=== PATIENT | female | born 2000 | race Caucasian/White ===

== ENCOUNTER 2020-05-12 15:29 | Outpatient (REF) | payer OTHER, SELFPAY | END 2020-05-12 15:30 | disposition home or self-care (01) | LOC: HO.LAB 15:29 | PROVIDERS: Visit Provider Internal Medicine | DX: Z20.822 Contact with and (suspected) exposure to COVID-19 (principal) | CPT/HCPCS: 36415; C9803; U0003 ==

== ENCOUNTER 2020-07-08 14:43 | Outpatient (REF) | payer OTHER, SELFPAY | END 2020-07-08 14:44 | disposition home or self-care (01) | LOC: HO.LAB 14:43 | PROVIDERS: Visit Provider Internal Medicine | DX: Z20.822 Contact with and (suspected) exposure to COVID-19 (principal) | CPT/HCPCS: 36415; C9803; U0003; U0005 ==

== ENCOUNTER 2020-09-10 11:52 | Outpatient (REF) | payer OTHER, SELFPAY ==
[2020-09-10 12:42] LABS: COVID-19 Test Negative (Negative)
== END 2020-09-10 11:53 | disposition home or self-care (01) ==
LOC: HO.LAB 11:52
PROVIDERS: Visit Provider Internal Medicine
DX: Z20.822 Contact with and (suspected) exposure to COVID-19 (principal)
CPT/HCPCS: 36415; 87635; C9803

== ENCOUNTER 2020-10-14 13:38 | Emergency (ER) | payer OTHER, SELFPAY ==
[2020-10-14 13:56] VITALS: BP 134/88; PULSE 103; RESP 18; TEMP 36.9; O2SAT 96; BMI 36.3
--- NOTE | 2020-10-14 14:19 | PC.NURSE ---
LEFT TONSIL ENLARGED WITH WHITE PUS NOTED.
[2020-10-14] MEDS: dexAMETHasone 2 MG TABLET 10 MG PO (14:50)
[2020-10-14] MEDS: Amoxicillin/Potassium Clav 875 MG TABLET PO (14:50)
[2020-10-14] MEDS: Ibuprofen 600 MG TABLET PO (14:50)
--- NOTE | 2020-10-14 15:04 | ED.GENADULT ---
HPI - General Adult General Chief complaint: General Medical Stated complaint: SORE THROAT Time Seen by Provider: 10/14/20 14:06 Source: patient Mode of arrival: ambulatory History of Present Illness HPI narrative: 20-year-old female with no significant past medical history presenting to the ED complaining of sore throat and difficulty/pain with swallowing times a couple days. Admits was seen at [facility] yesterday, rapid strep was negative, Augmentin was sent to pharmacy however patient was unable to potato picker, however reports it is ready now. Admits white exudates that are present today were not there yesterday. Also reports left ear pain and dry cough. Denies fever, chills, inability to swallow, recent travel, sick contacts, exposure COVID-19 Related Data Previous Rx's Medication Instructions Recorded amoxicillin-pot clavulanate 1 tab PO Q12H 7 Days #14 tab 10/14/20 [Augmentin] Allergies Allergy/AdvReac Type Severity Reaction Status Date / Time No Known Allergies Allergy Unverified 01/24/20 19:29 [No Known Allergies*] Review of Systems Review of Systems: Constitutional: No Fever, No Chills ENT/Mouth: + Ear Pain, No Nasal Congestion, No Sinus Pain, No Hoarseness, + sore throat, No Rhinorrhea, + Swallowing Difficulty Cardiovascular: No Chest Pain, No SOB Respiratory: + Cough, No Sputum, No Wheezing Gastrointestinal: No Nausea, No Vomiting, No Abdominal pain Musculoskeletal: No joint pain, No Myalgias, No Joint Swelling Skin: No Skin Lesions, No rash Neuro: No Weakness, No Numbness, No Paresthesias Yes all other systems are reviewed and are negative [facility] Past Medical History Attestation statement: The following information was validated with the patient. Social History Social History Advance Directives: Yes Advance Directives Information Provided: No Advance Directives on File: No Physical Exam Vital Signs: Vital Signs: Last Vital Signs Temp 98.4 F 10/14/20 13:56 Pulse 103 H 10/14/20 13:56 Resp 18 10/14/20 13:56 BP 134/88 10/14/20 13:56 Pulse Ox 96 10/14/20 13:56 Body Mass Index 36.3 Const: General: cooperative and healthy appearing Orientation/consciousness: patient oriented x3 Limitations: no limitations HENMT: Other: Patient is talking in complete sentences, in no respiratory distress Head: Yes normal to inspection Ears: hearing grossly normal bilaterally, external ears normal and TM's normal bilaterally General nose exam: Normal external nose present Face and sinus: Yes normal facial exam Throat: Yes uvula midline, Yes abnormal tonsil (Bilateral tonsillar swelling/erythema and exudates), No peritonsillar mass, No uvula laterally displaced and No uvular edema Eyes: General: appearance normal, both eyes and all related structures EOM: EOMs intact bilaterally Neck: Neck: Yes normal visual inspection, Yes no meningeal signs and Yes lymphadenopathy (Submandibular) Resp: Effort & Inspection: normal respiratory effort, not labored and no stridor Auscultation: clear to auscultation bilaterally Cardio: Rate: regular rate Heart sounds: S1 normal heart sound present and S2 normal heart sound present GI: Inspection: Yes normal to inspection Skin: Rashes: no rashes Wounds: no wounds Neuro: General: patient oriented x3 and no meningeal signs Gait exam (Neuro): Normal gait present Extrem: General: Yes normal to inspection Medical Decision Making MDM Narrative Medical decision making narrative: 20-year-old female with no significant past medical history presenting to the ED complaining of sore throat and difficulty/pain with swallowing times a couple days. On exam mildly tachycardic, NAD, in no apparent distress, talking in complete sentences, bilateral tonsillar swelling/erythema with exudates, is handling secretions. Physical exam consistent with strep pharyngitis. Will also COVID swab Lab Data Labs: Lab Results 10/14/20 10/14/20 Range/Units 14:41 14:41 COVID-19 ([facility]) Negative (Negative) COVID-19 Clin Com See Note S. pyogenes GrpA YOUNG Negative (Negative) Discharge Plan Discharge Clinical Impression: Strep pharyngitis Patient Disposition: Home, Self-Care Instructions: Strep Throat (ED) Additional Instructions: You have strep throat, Augmentin is an antibiotic, take as prescribed, make sure you pick it up today your given the 1st dose today in the emergency department Your also given a dose of a steroid today this will help with the swelling Take Tylenol and Motrin at home which will help with discomfort/swelling Make sure your staying hydrated Your contagious until your on the antibiotics for 24 hours Your tested for COVID-19, the results should be back in a few hours, I will call you positive or negative, in the meantime self isolate until you know the results Prescriptions: New amoxicillin-pot clavulanate [Augmentin] 875-125 mg tablet 1 tab PO Q12H 7 Days Qty: 14 RF: 0 Referrals: Physician,Unknown [Primary Care Provider] - 2 days Stand Alone Forms: Work/School Release Interventions: ED Discharge Assessment Last Done: 10/14/20 15:19 Discharge Date/Time: 10/14/20 15:19
[2020-10-14 15:14] LABS: Strep A Nucleic Acid Negative (Negative)
[2020-10-14 15:30] LABS: COVID-19 Test Negative (Negative)
== END 2020-10-14 15:19 | disposition home or self-care (01) ==
PROVIDERS: Physician Assistant; Emergency Provider Emergency Medicine
DX: J02.0 Streptococcal pharyngitis (principal); Z20.822 Contact with and (suspected) exposure to COVID-19; H92.02 Otalgia, left ear
CPT/HCPCS: 36415; 87635; 87651; 99283; J8540

== ENCOUNTER 2021-08-25 22:43 | Emergency (ER) | payer OTHER, SELFPAY ==
--- NOTE | ~2021-08-25 | XR_ITS ---
EXAMINATION: XR ABDOMEN KUB CLINICAL INDICATION: Lower abdominal discomfort. History of constipation. COMPARISON: None TECHNIQUE: AP view of the abdomen. FINDINGS: Nonobstructive bowel gas pattern. No dilated loops of bowel. Gas throughout nondilated colon with mild stool burden. The lung bases are clear. No suspicious calcifications. No acute osseous abnormality. XR/XR KUB IMPRESSION: Normal bowel gas pattern. Mild stool burden.
[2021-08-25 22:55] VITALS: BP 109/70; PULSE 76; RESP 18; TEMP 36.6; O2SAT 100; BMI 32.4
[2021-08-25 23:14] LABS: MANUAL DIFF FLAG NO
[2021-08-25 23:15] LABS: Basophils Absolute Auto 0.1 X10*3/uL (0.0-0.2); Basophils Percent Auto 0.4 % (0-2); Eosinophils Absolute Auto 0.2 X10*3/uL (0.0-0.4); Eosinophils Percent Auto 1.6 % (0-4); Hematocrit 34.8 % (37.0-47.0); Hemoglobin 11.5 g/dl (12.0-16.0); Imm Gran Abs Auto 0.03 X10*3/uL (0.00-0.03); Imm Gran Pct Auto 0.2 % (0.0-0.4); Lymphocytes Absolute Auto 3.3 X10*3/uL (1.2-4.9); Lymphocytes Percent Auto 25.3 % (20-40); Mean Corpuscular Hemoglobin 29.6 pg (27.0-33.0); Mean Corpuscular Volume 89.5 fL (80.0-98.0); Mean Platelet Volume 8.9 fL (9.4-12.3); Monocytes Percent Auto 7.6 % (2-11); Neutrophils Absolute Auto 8.3 x10*3/uL (2.0-8.3); Neutrophils Percent Auto 64.9 % (45-73); Platelet Count 361 X10*3/uL (160-400); Red Blood Count 3.89 X10*6/uL (4.20-5.50); Red Cell Distribution Width 12.3 % (11.0-16.0); White Blood Count 12.8 X10*3/uL (4.8-10.8)
[2021-08-25 23:18] LABS: Appearance Urine CLEAR; Color Urine YELLOW; Glucose Urine UA NEG (NEG); Leukocyte Esterase Urine NEG (NEG); Nitrite Urine NEG (NEG); PH 7.5 (5.0-8.0); Urine Blood NEG (NEG); Urine Ketones NEG (NEG); Urine Protein NEG (NEG-TRACE)
[2021-08-25 23:20] LABS: UPreg QC Valid YES; Urine Pregnancy NEGATIVE (NEGATIVE)
[2021-08-25 23:31] LABS: COVID-19 Test Negative (Negative)
[2021-08-25 23:36] LABS: IDNOW Serial# 08D9AD1C; Influenza A Negative (Negative); Influenza B2 Negative (Negative)
[2021-08-25 23:37] LABS: Alanine Aminotransferase 16 U/L (0-31); Albumin Level 3.8 g/dL (3.5-5.0); Alkaline Phosphatase 69 U/L (39-117); Anion Gap 9 (12-20); Aspartate Amino Transferase 17 U/L (5-31); Bilirubin Total 0.7 mg/dL (0.0-1.0); Blood Urea Nitrogen 9 mg/dL (9-16); Calcium 9.2 mg/dL (8.4-10.2); Carbon Dioxide 27 mmol/L (22-29); Chloride 106 mmol/L (96-108); Creatinine Clr Calc Pharmacy 132.8; Estimated Glomerular Filt Rate > 60; Glucose Random 101 mg/dL (60-115); Potassium 4.2 mmol/L (3.3-5.1); Sodium 138 mmol/L (135-145); Total Protein 7.1 g/dL (6.5-8.0)
[2021-08-25 23:49] VITALS: BP 125/91; PULSE 82; RESP 16; TEMP 37.1; O2SAT 100
--- NOTE | 2021-08-26 00:43 | ED_ITS ---
HPI - General Adult General Chief complaint: General Medical Stated complaint: abd pain, lower back pain Time Seen by Provider: 08/25/21 23:48 Source: patient Mode of arrival: ambulatory History of Present Illness HPI narrative: 21-year-old female presents with headache, mild nausea, diarrhea lower abdominal/pelvic pain that is been ongoing since Tuesday. Patient denies any fevers or chills, denies urinary pain/burning/frequency but states that the sensation within her lower abdomen feels similar to a urinary tract infection. She denies any vaginal discharge. Related Data Previous Rx's Medication Instructions Recorded amoxicillin 500 mg capsule 500 mg PO Q12H #20 cap 05/14/21 Allergies Allergy/AdvReac Type Severity Reaction Status Date / Time No Known Allergies Allergy Verified 05/14/21 12:40 [No Known Allergies*] Review of Systems Review of Systems: Pertinent positives and negatives as stated in HPI 10 point review of systems is otherwise negative. PMFSH Past Medical History Source: nursing notes reviewed Social History Social History Advance Directives: No Physical Exam ED Vital Signs: Vital Signs - 24 hr 08/25/21 22:55 08/25/21 23:49 Temperature 98 F 98.7 F Pulse Rate 76 82 Respiratory Rate 18 16 Blood Pressure 109/70 125/91 H Pulse Oximetry 100 100 BMI result Body Mass Index 32.4 VITAL SIGNS: Reviewed. GENERAL: Well developed, well nourished, in no acute distress. HEAD: Normocephalic/atraumatic EYES: PERRLA, EOMI EARS: Ext canals without abnormality, TMs non-bulging and non-erythematous NOSE: Nares patent bilateral OROPHARYNX: no oral lesions noted, posterior pharynx clear and non-erythematous without noted tonsillar enlargement/erythema/exudates NECK: Supple, no adenopathy LUNGS: Normal breath sounds. No adventitious sounds or accessory muscle use. SpO2<100> CARDIOVASCULAR: Regular rate and rhythm without noted murmurs ABDOMEN: Soft, non-tender, non-distended with bowel sounds. MUSCULOSKELETAL: No tenderness, deformities, or effusions noted on gross inspection. EXTREMITIES: No cyanosis, clubbing or edema. SKIN: Inspection of the skin reveals no rashes NEUROLOGIC: Alert and oriented x 4. Strength and sensation to light touch were grossly intact x 4. Course Course Course Narrative: -year-old female with history and clinical presentation after review of investigations which do not show acute findings other than a mild leukocytosis with a benign abdominal exam and urinalysis negative for evidence of infection. Patient then endorse that she suffers from chronic constipation and has had significant difficulty over the past couple of days. On review of all investigations there is [id number] stool load and on re- evaluation after patient received combination analgesics she reports resolution of her symptoms. Discussed with patient the possibility of the constipation in conjunction with pre-menstruation symptoms. At this time patient is stable for discharge to home. Medical Decision Making Lab Data Result diagrams: 08/25/21 22:59 08/25/21 22:59 Labs: Lab Results 08/25/21 08/25/21 08/25/21 Range/Units 22:59 22:59 22:59 WBC 12.8 H (4.8-10.8) X10*3/uL RBC 3.89 L (4.20-5.50) X10*6/uL Hgb 11.5 L (12.0-16.0) g/dl Hct 34.8 L (37.0-47.0) % MCV 89.5 (80.0-98.0) fL MCH 29.6 (27.0-33.0) pg MCHC 33.0 (31.0-35.0) g/dl RDW 12.3 (11.0-16.0) % Plt Count 361 (160-400) X10*3/uL MPV 8.9 L (9.4-12.3) fL Immature Gran % (Auto) 0.2 (0.0-0.4) % Neut % (Auto) 64.9 (45-73) % Lymph % (Auto) 25.3 (20-40) % Rock % (Auto) 7.6 (2-11) % Eos % (Auto) 1.6 (0-4) % Baso % (Auto) 0.4 (0-2) % Lymph # (Auto) 3.3 (1.2-4.9) X10*3/uL Rock # (Auto) 1.0 (0.1-1.2) X10*3/uL Eos # (Auto) 0.2 (0.0-0.4) X10*3/uL Baso # (Auto) 0.1 (0.0-0.2) X10*3/uL Abs Immat Gran (auto) 0.03 (0.00-0.03) X10*3/uL Absolute Neuts (auto) 8.3 (2.0-8.3) x10*3/uL Absolute Nucleated RBC 0.000 (0.0-0.012) X10*3/uL Nucleated RBC % (auto) 0.0 (0.0-0.2) /100WBC Sodium 138 (135-145) mmol/L Potassium 4.2 (3.3-5.1) mmol/L Chloride 106 (96-108) mmol/L Carbon Dioxide 27 (22-29) mmol/L Anion Gap 9 L (12-20) BUN 9 (9-16) mg/dL Creatinine 0.73 (0.5-1.4) mg/dL Estim Creat Clear Calc 132.8 Estimated GFR > 60 Random Glucose 101 (60-115) mg/dL Calcium 9.2 (8.4-10.2) mg/dL Total Bilirubin 0.7 (0.0-1.0) mg/dL AST 17 (5-31) U/L ALT 16 (0-31) U/L Alkaline Phosphatase 69 (39-117) U/L Total Protein 7.1 (6.5-8.0) g/dL Albumin 3.8 (3.5-5.0) g/dL Urine Color Urine Appearance Urine pH (5.0-8.0) Ur Specific [employer] (1.005-1.025) Urine Protein (NEG-TRACE) MG/DL Urine Glucose (UA) (NEG) MG/DL Urine Ketones (NEG) MG/DL Urine Blood (NEG) Urine Nitrite (NEG) Ur Leukocyte Esterase (NEG) Urine Test (NEGATIVE) COVID-19 ([facility]) Negative (Negative) COVID-19 Clin Com See Note Influenza Type A ([facility]) (Negative) Influenza Type B (YOUNG) (Negative) Influenza A & B Note 08/25/21 08/25/21 08/25/21 Range/Units 22:59 23:04 23:04 WBC (4.8-10.8) X10*3/uL RBC (4.20-5.50) X10*6/uL Hgb (12.0-16.0) g/dl Hct (37.0-47.0) % MCV (80.0-98.0) fL MCH (27.0-33.0) pg MCHC (31.0-35.0) g/dl RDW (11.0-16.0) % Plt Count (160-400) X10*3/uL MPV (9.4-12.3) fL Immature Gran % (Auto) (0.0-0.4) % Neut % (Auto) (45-73) % Lymph % (Auto) (20-40) % Rock % (Auto) (2-11) % Eos % (Auto) (0-4) % Baso % (Auto) (0-2) % Lymph # (Auto) (1.2-4.9) X10*3/uL Rock # (Auto) (0.1-1.2) X10*3/uL Eos # (Auto) (0.0-0.4) X10*3/uL Baso # (Auto) (0.0-0.2) X10*3/uL Abs Immat Gran (auto) (0.00-0.03) X10*3/uL Absolute Neuts (auto) (2.0-8.3) x10*3/uL Absolute Nucleated RBC (0.0-0.012) X10*3/uL Nucleated RBC % (auto) (0.0-0.2) /100WBC Sodium (135-145) mmol/L Potassium (3.3-5.1) mmol/L Chloride (96-108) mmol/L Carbon Dioxide (22-29) mmol/L Anion Gap (12-20) BUN (9-16) mg/dL Creatinine (0.5-1.4) mg/dL Estim Creat Clear Calc Estimated GFR Random Glucose (60-115) mg/dL Calcium (8.4-10.2) mg/dL Total Bilirubin (0.0-1.0) mg/dL AST (5-31) U/L ALT (0-31) U/L Alkaline Phosphatase (39-117) U/L Total Protein (6.5-8.0) g/dL Albumin (3.5-5.0) g/dL Urine Color YELLOW Urine Appearance CLEAR Urine pH 7.5 (5.0-8.0) Ur Specific [employer] 1.020 (1.005-1.025) Urine Protein NEG (NEG-TRACE) MG/DL Urine Glucose (UA) NEG (NEG) MG/DL Urine Ketones NEG (NEG) MG/DL Urine Blood NEG (NEG) Urine Nitrite NEG (NEG) Ur Leukocyte Esterase NEG (NEG) Urine Test NEGATIVE (NEGATIVE) COVID-19 ([facility]) (Negative) COVID-19 Clin Com Influenza Type A ([facility]) Negative (Negative) Influenza Type B (YOUNG) Negative (Negative) Influenza A & B Note See Note Discharge Plan Discharge Clinical Impression: Bilateral lower abdominal discomfort, Headache Patient Disposition: Home, Self-Care Instructions: Abdominal Pain (ED) Additional Instructions: 1. Tylenol 1000 mg, orally, every 6 hours as needed for pain control. Do not exceed 4000 mg within 24 hours. 2. Ibuprofen 400 mg, orally with milk or food, every 6 hours as needed for pain control. Recommend MiraLax twice a day in an attempt to achieve daily, soft stools. Stop this if you develop diarrhea. 3. Follow-up with your primary care provider in the next 2-3 days for re- evaluation further outpatient management as indicated. Return to the ER for worsening symptoms. Prescriptions: No Action amoxicillin 500 mg capsule 500 mg PO Q12H Qty: 20 0RF
[2021-08-26] MEDS: Acetaminophen 325 MG TABLET 975 MG PO (00:57)
[2021-08-26] MEDS: Ibuprofen 400 MG TABLET PO (00:57)
== END 2021-08-26 01:26 | disposition home or self-care (01) ==
PROVIDERS: Emergency Provider Student in an Organized Health Care Education/Training Program
DX: R10.30 Lower abdominal pain, unspecified (principal); R51.9 Headache, unspecified; Z20.822 Contact with and (suspected) exposure to COVID-19
CPT/HCPCS: 36415; 74018; 80053; 81003; 81025; 85025; 87502; 87635; 99283; 99284

== ENCOUNTER 2024-10-25 21:03 | Emergency (ER) | payer OTHER, SELFPAY ==
--- NOTE | ~2024-10-25 | XR_ITS ---
CLINICAL HISTORY: cp 1 view chest x-ray Comparison: None provided Findings: The lungs are clear. Heart size is normal. No acute fracture. IMPRESSION: 1. No acute findings. This document has been electronically signed by: Jonathan Kincaid MD on 10/25/2024 22:41:32
--- NOTE | 2024-10-25 21:07 | ECG_ITS ---
Test Reason : chest pain Blood Pressure : */* mmHG Vent. Rate : 111 BPM Atrial Rate : 111 BPM P-R Int : 116 ms QRS Dur : 72 ms QT Int : 344 ms P-R-T Axes : * 119 86 degrees QTcB Int : 467 ms Sinus tachycardia Right axis deviation Abnormal ECG No previous ECGs available Referred By: Generic ED Physician Electronically Signed By: Jef Macias
[2024-10-25 21:15] VITALS: BP 125/83; PULSE 109; RESP 16; TEMP 36.4; O2SAT 99; BMI 40.5
[2024-10-25 21:22] VITALS: BP 116/71; PULSE 104; RESP 20; TEMP 37.7; O2SAT 95
[2024-10-25 21:40] LABS: MANUAL DIFF FLAG NO
--- NOTE | 2024-10-25 21:44 | ED_ITS ---
HPI - Chest Pain General Chief Complaint: Chest Pain Stated Complaint: cp Time Seen by Provider: 10/25/24 21:37 Source: patient Mode of arrival: ambulatory Limitations: no limitations History of Present Illness ED Provider: HPI narrative: Patient's history of anxiety no known coronary artery disease complaining of chest pain for last 4 days patient is 24 years old nonsmoker no significant family history of cardiac disease does have history of anxiety and does have chest pain off and on when she gets anxious pain is constant no radiation of the pain no shortness a breath Related Data Previous Rx's ?Medication ?Instructions ?Recorded amoxicillin 500 mg capsule 500 mg PO Q12H #20 caps 10/28 Allergies Allergy/AdvReac Type Severity Reaction Status Date / Time No Known Allergies (No Known Allergy Verified 10/25/24 21:18 Allergies*) Review of Systems 2 Review of Systems: Yes all other systems are reviewed and are negative [facility] Social History Social History Advance Directives: No Advance Directives Information Provided: No Physical Exam 2 Vital Signs: Vital Signs: Last Vital Signs Temp 98.4 F 10/25/24 23:01 Pulse 80 10/25/24 23:01 Resp 15 10/25/24 23:01 BP 103/60 10/25/24 23:01 Pulse Ox 96 10/25/24 23:01 O2 Del Method Room Air 10/25/24 23:01 BMI result Body Mass Index 40.5 Appearance: Alert. Oriented X3. No acute distress. Eyes: PERRLA, No Nystagmus ENT: Pharynx normal. Oral Mucosa moist Neck: Normal inspection. Neck supple. CVS: Normal heart rate and rhythm. Pulses normal. No chest wall tenderness Respiratory: No respiratory distress. Equal air entry bilateral, no wheezing/rales/rhonchi Abdomen: Soft and nontender. Bowel sounds are present, no mass palpable, no CVA tenderness Skin: Skin warm and dry. Normal skin color. Normal skin turgor. Extremities: No lower extremity edema. No calf tenderness Neuro: Oriented X 3. No motor deficit. No sensory deficit.No cerebellar signs , cranial nerves II-XII intact Medical Decision Making Medical Decision Making [facility] Narrative: Patient has atypical chest pain heart score of 0 normal cardiac rhythm normal EKG will discharge patient home likely musculoskeletal Lab Data [facility] Lab Attestation statement: I reviewed the patient's lab results. 10/25/24 21:36 10/25/24 21:36 Labs: Lab Results 10/25/24 Range/Units 21:36 WBC 10.6 (4.8-10.8) X10*3/uL RBC 4.22 (4.20-5.50) X10*6/uL Hgb 12.2 (12.0-16.0) g/dl Hct 36.6 L (37.0-47.0) % MCV 86.7 (80.0-98.0) fL MCH 28.9 (27.0-33.0) pg MCHC 33.3 (31.0-35.0) g/dl RDW 12.7 (11.0-16.0) % Plt Count 342 (160-400) X10*3/uL MPV 9.1 L (9.4-12.3) fL Immature Gran % (Auto) 0.3 (0.0-0.4) % Neut % (Auto) 62.9 (45-73) % Lymph % (Auto) 28.0 (20-40) % [place] % (Auto) 7.1 (2-11) % Eos % (Auto) 1.4 (0-4) % Baso % (Auto) 0.3 (0-2) % Lymph # (Auto) 3.0 (1.2-4.9) X10*3/uL [place] # (Auto) 0.8 (0.1-1.2) X10*3/uL Eos # (Auto) 0.2 (0.0-0.4) X10*3/uL Baso # (Auto) 0.0 (0.0-0.2) X10*3/uL Abs Immat Gran (auto) 0.03 (0.00-0.03) X10*3/uL Absolute Neuts (auto) 6.7 (2.0-8.3) x10*3/uL Absolute Nucleated RBC 0.000 (0.0-0.012) X10*3/uL Nucleated RBC % (auto) 0.0 (0.0-0.2) /100WBC Sodium 141 (135-145) mmol/L Potassium 4.0 (3.3-5.1) mmol/L Chloride 110 H (96-108) mmol/L Carbon Dioxide 23 (22-29) mmol/L Anion Gap 12 (12-20) BUN 10 (9-16) mg/dL Creatinine 0.78 (0.5-1.4) mg/dL Estim Creat Clear Calc 136.4 Estimated GFR > 60 Random Glucose 96 (60-115) mg/dL Calcium 9.2 (8.4-10.2) mg/dL Total Bilirubin 0.6 (0.0-1.0) mg/dL AST 22 (5-31) U/L ALT 17 (0-31) U/L Alkaline Phosphatase 59 (39-117) U/L Troponin I High Sens < 2.7 (<3.5-17.0) ng/L Total Protein 7.8 (6.5-8.0) g/dL Albumin 4.3 (3.5-5.0) g/dL Independent Interpretation I performed an independent interpretation of an: EKG (Sinus tachycardia with heart rate 111 beats per minute right axis deviation no acute ST-T changes no acute ischemia) Discharge Plan Discharge Clinical Impression: Atypical chest pain Patient Disposition: Home, Self-Care Instructions: Noncardiac Chest Pain (ED) Additional Instructions: Your chest pain is unlikely from the heart Your cardiogram and cardiac enzymes are negative Chest pain is likely musculoskeletal/anxiety induced Follow up with your PCP if any concerns Prescriptions: No Action amoxicillin 500 mg capsule 500 mg PO Q12H Qty: 20 0RF Print Language: Tristanian
[2024-10-25 21:49] LABS: Basophils Percent Auto 0.3 % (0-2); Eosinophils Absolute Auto 0.2 X10*3/uL (0.0-0.4); Eosinophils Percent Auto 1.4 % (0-4); Hematocrit 36.6 % (37.0-47.0); Hemoglobin 12.2 g/dl (12.0-16.0); Imm Gran Abs Auto 0.03 X10*3/uL (0.00-0.03); Imm Gran Pct Auto 0.3 % (0.0-0.4); Mean Corpuscular HGB Conc 33.3 g/dl (31.0-35.0); Mean Corpuscular Hemoglobin 28.9 pg (27.0-33.0); Mean Corpuscular Volume 86.7 fL (80.0-98.0); Mean Platelet Volume 9.1 fL (9.4-12.3); Monocytes Absolute Auto 0.8 X10*3/uL (0.1-1.2); Monocytes Percent Auto 7.1 % (2-11); Neutrophils Absolute Auto 6.7 x10*3/uL (2.0-8.3); Neutrophils Percent Auto 62.9 % (45-73); Platelet Count 342 X10*3/uL (160-400); Red Blood Count 4.22 X10*6/uL (4.20-5.50); Red Cell Distribution Width 12.7 % (11.0-16.0); White Blood Count 10.6 X10*3/uL (4.8-10.8)
[2024-10-25 21:56] LABS: Alanine Aminotransferase 17 U/L (0-31); Albumin Level 4.3 g/dL (3.5-5.0); Alkaline Phosphatase 59 U/L (39-117); Anion Gap 12 (12-20); Aspartate Amino Transferase 22 U/L (5-31); Bilirubin Total 0.6 mg/dL (0.0-1.0); Blood Urea Nitrogen 10 mg/dL (9-16); Calcium 9.2 mg/dL (8.4-10.2); Carbon Dioxide 23 mmol/L (22-29); Chloride 110 mmol/L (96-108); Creatinine Clr Calc Pharmacy 136.4; Estimated Glomerular Filt Rate > 60; Glucose Random 96 mg/dL (60-115); Sodium 141 mmol/L (135-145); Total Protein 7.8 g/dL (6.5-8.0)
[2024-10-25 22:04] LABS: Troponin-I High Sensitivity < 2.7 ng/L (<3.5-17.0)
--- OUTSIDE RECORDS SUMMARY | 2024-10-25 22:07 | XMS_ITS | Clinical Summary ---
Author Organization [facility] Address [address] [place] [phone] Phone Care Team Providers Care Professor Of Voice Name Role Phone Unavailable Primary Care Provider Unavailabl e Immunizations Immunization Administration Dates Next Due DTaP 06/30/2000, 0,1999, 000 Hep B, ped/adol 1999,1999,1999 Hib (PRP-T) 06/30/2000, 0,1999, 000 IPV 1999,1999,1999 Influenza, injectable, quadrivalent 02/07/2008,1 05/30/2005 MMR 03/13/2003,03/14/2000 Meningococcal Conj (Menactra) MCV4P 05/11/2010 Pneumococcal Conjugate 12/20/2000,06/30/2000,05/1999 Tdap 05/11/2010 Varicella 02/15/2008,03/14/2000 Family History Relation Name Status Comments Father healthy Maternal Grandfather Alive hyperte nsion Maternal Grandmother Alive thyroid hypo, , hypertension, depression, asthma, herniated disc Mother healthy Other Siblings: asthm a Paternal Grandfather Alive Paternal Grandmother Alive asthma, depression Social History Tobacco Use Types Packs/Day Years Used Date Smoking Tobacco: Never Assessed Comments Unknown Sex and Gender Information Value Date Recorded Sex Assigned at Not on file Legal Sex Female 6:09 PM EDT Gender Identity Not on file Sexual Orientation Not on file Last Filed Vital Signs Vital Sign Reading Time Taken Comments Blood Pressure 106/60 05/11/2010 12:00 AM EST Pulse - - Temperature 36.6 C (97.8 F) 08/21/2009 12:00 AM EDT Respiratory Rate - - Oxygen Saturation - - Inhaled Oxygen Concentration - - Weight 59.1 kg (130 lb 6.4 oz) 05/11/2010 12:00 AM EST Height 151.1 cm (4' 11.5 ) 05/11/2010 12:[address] Body Mass Index 25.9 05/11/2010 12:00 AM EST Plan of Treatment Health Maintenance Due Date Last Done Comments IPV Vaccines (4 of 4 - 4-dose series) 2003 1999, 1999, 1999 HPV Vaccines (1 - 3-dose series) 2014 DTaP,Tdap,and Td Vaccines (6 - Td or Tdap) 05/11/2020 05/11/2010, 06/30/2000, 1999, Additional history exists Influenza Vaccines (#1) 2023 02/07/2008, 03/30 COVID-19 Vaccine ( season) 2024 Hepatitis B Vaccines Completed 1999, 1999, 1999 HIB Vaccines Completed 06/30/2000, 08/1999, 1999, Additional history exists Pneumococcal Vaccine Completed 12/20/2000, 06/30/2000, 1999 MMR Vaccines Completed 03/13/2003, 03/14/2000 Varicella Vaccines Completed 02/15/2008, 03/14/2000 Meningococcal Vaccine Aged Out 05/11/2010 No henny khadra eligible based on patient's age to complete this topic Hepatitis A Vaccines Aged Out No long er eligible based on patient's age to complete this topic Men B Vaccine Aged Out No longer elig ible based on patient's age to complete this topic
[2024-10-25 23:01] VITALS: BP 103/60; PULSE 80; RESP 15; TEMP 36.9; O2SAT 96
[2024-10-25 23:10] VITALS: BP 103/60; PULSE 80; RESP 18; TEMP 36.9; O2SAT 96
== END 2024-10-25 23:15 | disposition home or self-care (01) ==
PROVIDERS: Emergency Provider Internal Medicine; PCP Internal Medicine
DX: R07.89 Other chest pain (principal); R00.0 Tachycardia, unspecified; F41.8 Other specified anxiety disorders
CPT/HCPCS: 36415; 71045; 80053; 84484; 85025; 93005; 99283; 99284

== ENCOUNTER → 2024-10-25 21:07 | Outpatient (BNV) | payer OTHER, SELFPAY | PROVIDERS: Emergency Provider Internal Medicine; PCP Internal Medicine; Visit Provider Internal Medicine Cardiovascular Disease | DX: R00.0 Tachycardia, unspecified (principal) | CPT/HCPCS: 93010 ==

== ENCOUNTER → 2024-10-25 21:19 | Outpatient (BNV) | payer OTHER, SELFPAY | PROVIDERS: Emergency Provider Internal Medicine; PCP Internal Medicine; Visit Provider Radiology Diagnostic Radiology | DX: R52 Pain, unspecified (principal) | CPT/HCPCS: 71045 ==

== ENCOUNTER 2024-12-29 23:53 | Emergency (ER) | payer OTHER, SELFPAY ==
--- NOTE | ~2024-12-29 | XR_ITS ---
CLINICAL HISTORY: chest pain 2 view chest x-ray Comparison: None provided Findings: The lungs are clear. Heart size is normal. No acute fracture. IMPRESSION: 1. No acute findings. This document has been electronically signed by: Jonathan Kincaid MD on 12/30/2024 01:21:15
--- NOTE | 2024-12-29 23:55 | ECG_ITS ---
Test Reason : CHEST PAIN Blood Pressure : */* mmHG Vent. Rate : 98 BPM Atrial Rate : 98 BPM P-R Int : 132 ms QRS Dur : 72 ms QT Int : 332 ms P-R-T Axes : 40 27 37 degrees QTcB Int : 423 ms Normal sinus rhythm Normal ECG When compared with ECG of 25-Oct-2024 21:10, QRS axis Shifted left Referred By: Generic ED Physician Electronically Signed By: CINTHIA ANDRADE
[2024-12-30] VITALS: BP 137/72; PULSE 94; RESP 20; TEMP 36.8; O2SAT 99; BMI 39.9
[2024-12-30 00:12] LABS: MANUAL DIFF FLAG NO
[2024-12-30 00:14] LABS: Hematocrit 35.6 % (37.0-47.0); Hemoglobin 12.4 g/dl (12.0-16.0); Imm Gran Abs Auto 0.02 X10*3/uL (0.00-0.03); Imm Gran Pct Auto 0.2 % (0.0-0.4); Lymphocytes Absolute Auto 3.5 X10*3/uL (1.2-4.9); Mean Corpuscular HGB Conc 34.8 g/dl (31.0-35.0); Mean Corpuscular Hemoglobin 29.6 pg (27.0-33.0); Mean Corpuscular Volume 85.0 fL (80.0-98.0); NRBC Abs Auto 0.000 X10*3/uL (0.0-0.012); NRBC Pct Auto 0.0 /100WBC (0.0-0.2); Platelet Count 331 X10*3/uL (160-400); Red Blood Count 4.19 X10*6/uL (4.20-5.50); White Blood Count 10.2 X10*3/uL (4.8-10.8)
[2024-12-30 00:24] VITALS: BP 115/82; PULSE 82; RESP 12; TEMP 36.7; O2SAT 98
[2024-12-30 00:31] LABS: Alanine Aminotransferase 25 U/L (0-31); Albumin Level 4.3 g/dL (3.5-5.0); Alkaline Phosphatase 59 U/L (39-117); Anion Gap 13 (12-20); Aspartate Amino Transferase 28 U/L (5-31); Blood Urea Nitrogen 12 mg/dL (9-16); Calcium 8.8 mg/dL (8.4-10.2); Carbon Dioxide 21 mmol/L (22-29); Chloride 110 mmol/L (96-108); Creatinine Clr Calc Pharmacy 144.6; Estimated Glomerular Filt Rate > 60; Potassium 3.8 mmol/L (3.3-5.1); Sodium 140 mmol/L (135-145); Total Protein 7.7 g/dL (6.5-8.0)
[2024-12-30 00:39] LABS: Troponin-I High Sensitivity < 2.7 ng/L (<3.5-17.0)
--- NOTE | 2024-12-30 00:41 | ED.CHESTPAIN ---
HPI - Chest Pain General Chief Complaint: Chest Pain Stated Complaint: Chest Pain Time Seen by Provider: 12/30/24 00:35 Source: patient Mode of arrival: ambulatory Limitations: no limitations History of Present Illness ED Provider: Dr. Sheba Crocker HPI narrative: Patient comes to the emergency room complaining of 1 week of chest squeezing sensation, admits that she does have anxiety. Patient states that she was already been seen by her PCP, symptoms keep recurring. Patient denies any syncopal episodes, no lower extremity pain or swelling. Related Data Previous Rx's ?Medication ?Instructions ?Recorded amoxicillin 500 mg capsule 500 mg PO Q12H #20 caps 05/14/21 Allergies Allergy/AdvReac Type Severity Reaction Status Date / Time No Known Allergies (No Known Allergy Verified 12/30/24 00:02 Allergies*) Review of Systems Review of Systems: Constitutional : No Weight loss, No Fever, No Chills, No Night Sweats, No Fatigue, No Malaise ENT/Mouth : No Hearing loss, No Ear Pain, No Nasal Congestion, No Sinus Pain, No Hoarseness, No sore throat, No Rhinorrhea, No Swallowing Difficulty Eyes: No Eye Pain, No Swelling, No Redness, No Foreign Body, No Discharge, No Vision Changes Cardiovascular : Complaining of hard squeezing sensation for 1 week, sensation No SOB, No Dyspnea on Exertion, No Orthopnea, No Edema, No Palpitations Respiratory : No Cough, No Sputum, No Wheezing, No Smoke Exposure, No Dyspnea Gastrointestinal : No Nausea, No Vomiting, No Diarrhea, No Constipation, No abdominal Pain, No Hematochezia, No Melena Genitourinary : no irregular bleeding, No Dysuria, No Urinary Frequency, No Hematuria, No Urinary Incontinence, No Urgency, No Flank Pain, No Urinary Flow Changes, No Hesitancy Musculoskeletal : No joint pain, No Myalgias, No Joint Swelling Skin : No Skin Lesions, No rash Neuro : No Weakness, No Numbness, No Paresthesias, No Loss of Consciousness, No Dizziness, No Headache Psych : Complaining of anxiety No Depression, No SI/HI/AH/VH, No Social Issues, Heme/Lymph: No Bruising, No Bleeding,No Lymphadenopathy Endocrine : No Polyuria, No Polydipsia, No Temperature Intolerance [facility] Past Medical History Medical History (Updated 12/30/24 @ 00:46 by Sheba Crocker MD) Anxiety Social History Social History Smoked in Last 30 Days: No Use of substances other than those prescribed or required for medical reasons: No Advance Directives: No Advance Directives Information Provided: No Physical Exam Exam: Exam: Appearance: Alert. Oriented X3. No acute distress. Eyes: Pupils equal, round and reactive to light. ENT: Pharynx normal. Neck: Normal inspection. Neck supple. No lymph nodes noted. No crepitus CVS: Normal heart rate and rhythm. Pulses normal. Normal S1 and S2 Respiratory: No respiratory distress. Breath sounds normal. No Wheezing. No rales Abdomen: Soft and nontender. No rigidity. No distention. Skin: Skin warm and dry. Normal skin color. Normal skin turgor. Extremities: No lower extremity edema. No Lacerations. No Rash Neuro: Oriented X 3. No motor deficit. No sensory deficit. Moving all extremities. No slurred speech. CN 2 through 12 grossly intact Psych: calm, cooperative, normal affect Vital Signs: Vital Signs: Last Vital Signs Temp 98.0 F 12/30/24 00:24 Pulse 82 12/30/24 00:24 Resp 12 12/30/24 00:24 BP 115/82 12/30/24 00:24 Pulse Ox 98 12/30/24 00:24 O2 Del Method Room Air 12/30/24 00:24 BMI result Body Mass Index 39.9 Course Course Course Narrative: Patient reports hurts squeezing sensation for 1 week Has already been seen by her PCP Admits to having anxiety Labs and imaging pending Medical Decision Making Medical Decision Making MDM Narrative: My interpretation of EKG: Normal sinus rhythm, heart rate 98, no ST segment depression or elevation, no T-wave inversion, QTC 423 My interpretation of labs: No significant abnormality in patient's hematology and chemistry, normal LFTs Troponin negative My interpretation of chest x-ray no acute abnormality Patient's heart score 0 Patient's symptoms most likely musculoskeletal versus anxiety, unlikely to be of cardiac origin Differential Diagnosis Differential Diagnoses: The differential diagnosis associated with the presentation includes (Costochondritis, pleurisy, ACS) Admission/Observation Consideration of admission/observation: Escalation of care including admission/observation considered (Given patient's length of symptoms, observation was considered) Lab Data [facility] Lab Attestation statement: I reviewed the patient's lab results. 12/30/24 00:08 12/30/24 00:08 Labs: Lab Results 12/30/24 Range/Units 00:08 WBC 10.2 (4.8-10.8) X10*3/uL RBC 4.19 L (4.20-5.50) X10*6/uL Hgb 12.4 (12.0-16.0) g/dl Hct 35.6 L (37.0-47.0) % MCV 85.0 (80.0-98.0) fL MCH 29.6 (27.0-33.0) pg MCHC 34.8 (31.0-35.0) g/dl RDW 12.6 (11.0-16.0) % Plt Count 331 (160-400) X10*3/uL MPV 8.8 L (9.4-12.3) fL Immature Gran % (Auto) 0.2 (0.0-0.4) % Neut % (Auto) 57.0 (45-73) % Lymph % (Auto) 33.8 (20-40) % [place] % (Auto) 7.2 (2-11) % Eos % (Auto) 1.5 (0-4) % Baso % (Auto) 0.3 (0-2) % Lymph # (Auto) 3.5 (1.2-4.9) X10*3/uL [place] # (Auto) 0.7 (0.1-1.2) X10*3/uL Eos # (Auto) 0.2 (0.0-0.4) X10*3/uL Baso # (Auto) 0.0 (0.0-0.2) X10*3/uL Abs Immat Gran (auto) 0.02 (0.00-0.03) X10*3/uL Absolute Neuts (auto) 5.8 (2.0-8.3) x10*3/uL Absolute Nucleated RBC 0.000 (0.0-0.012) X10*3/uL Nucleated RBC % (auto) 0.0 (0.0-0.2) /100WBC Sodium 140 (135-145) mmol/L Potassium 3.8 (3.3-5.1) mmol/L Chloride 110 H (96-108) mmol/L Carbon Dioxide 21 L (22-29) mmol/L Anion Gap 13 (12-20) BUN 12 (9-16) mg/dL Creatinine 0.73 (0.5-1.4) mg/dL Estim Creat Clear Calc 144.6 Estimated GFR > 60 Random Glucose 100 (60-115) mg/dL Calcium 8.8 (8.4-10.2) mg/dL Total Bilirubin 0.5 (0.0-1.0) mg/dL AST 28 (5-31) U/L ALT 25 (0-31) U/L Alkaline Phosphatase 59 (39-117) U/L Troponin I High Sens < 2.7 (<3.5-17.0) ng/L Total Protein 7.7 (6.5-8.0) g/dL Albumin 4.3 (3.5-5.0) g/dL Independent Interpretation I performed an independent interpretation of an: Plain X-Ray Scores Heart Score History: -0- slightly suspicious ECG: -0- normal Age: -0- < or = 45 Risk factory: -0- no risk factors known Troponin: -0- < or = normal limit Score: 0 Risk: 1.7% Critical Care Time Critical Care Time Critical Care Time: Yes Total Critical Care Time: 35 Attestation: I have personally provided critical care time. Time includes review of lab data, radiology results, discussion with consultants, and monitoring for potential decompensation. Intervention performed as documented. Discharge Plan Discharge Clinical Impression: Atypical chest pain Patient Disposition: Home, Self-Care Instructions: Chest Pain (ED) Additional Instructions: Please follow-up with your primary care physician tomorrow. If you have any worsening or new symptoms, please return to the emergency room or call 911 Prescriptions: No Action amoxicillin 500 mg capsule 500 mg PO Q12H Qty: 20 0RF Print Language: Thai
[2024-12-30 01:09] VITALS: BP 103/66; PULSE 80; RESP 30; TEMP 36.6; O2SAT 96
[2024-12-30 01:23] VITALS: BP 103/66; PULSE 80; RESP 30; TEMP 36.6; O2SAT 96
== END 2024-12-30 01:24 | disposition home or self-care (01) ==
PROVIDERS: Emergency Provider Emergency Medicine
DX: R07.89 Other chest pain (principal); F41.9 Anxiety disorder, unspecified
CPT/HCPCS: 36415; 71046; 80053; 84484; 85025; 93005; 99283; 99285

== ENCOUNTER → 2024-12-29 23:55 | Outpatient (BNV) | payer OTHER, SELFPAY | PROVIDERS: Emergency Provider Emergency Medicine; Visit Provider Internal Medicine | DX: R07.9 Chest pain, unspecified (principal) | CPT/HCPCS: 93010 ==

== ENCOUNTER → 2024-12-30 23:15 | Outpatient (BNV) | payer OTHER, SELFPAY | PROVIDERS: Emergency Provider Emergency Medicine; Visit Provider Radiology Diagnostic Radiology | DX: R07.9 Chest pain, unspecified (principal) | CPT/HCPCS: 71046 ==

== ENCOUNTER 2025-04-22 13:11 | Emergency (ER) | payer OTHER, SELFPAY ==
--- NOTE | ~2025-04-22 | XR_ITS ---
EXAMINATION: XR CHEST CLINICAL INFORMATION: chest pain COMPARISON: December 30, 2024 TECHNIQUE: 2 views of the chest were obtained. FINDINGS: Lungs are clear. There is no pneumothorax. There is no pleural effusion. The cardiac size is within normal limits. XR/XR chest 2V IMPRESSION: No acute abnormality. Electronically signed by: Gurvinder Perez MD 04/22/2025 01:[address] [facility]
--- NOTE | 2025-04-22 13:14 | ECG_ITS ---
Test Reason : CHEST PAIN Blood Pressure : */* mmHG Vent. Rate : 91 BPM Atrial Rate : 91 BPM P-R Int : 134 ms QRS Dur : 74 ms QT Int : 336 ms P-R-T Axes : 14 40 33 degrees QTcB Int : 413 ms Normal sinus rhythm Normal ECG When compared with ECG of 29-Dec-2024 23:59, No significant change was found Referred By: Chelsea Gutierrez Electronically Signed By: Jef Macias
[2025-04-22 13:25] VITALS: BP 147/89; PULSE 96; RESP 20; TEMP 36.8; O2SAT 99; BMI 40.8
--- NOTE | 2025-04-22 13:26 | ED_ITS ---
HPI - General Adult General Chief complaint: General Medical Stated complaint: Chest Pain Time Seen by Provider: 04/22/25 14:43 Source: patient and family Mode of arrival: ambulatory Limitations: no limitations History of Present Illness ED Provider: KENNY DE LEON narrative: 25-year-old female with past medical history of anxiety and repeat visits for chest pain. She has no risk factors for ACS, she does not use any IV drugs, she does not use cocaine, she has no family history of early sudden cardiac . She is on any control. She has had no recent travel or procedures. She has been worked up for this in the past. She is here with her mom they both know if she feels any sensation in her chest she cannot get past the anxiety of it and comes to the ED be checked out for heart attack. She no longer sees a therapist. She takes no medications every day. She has had this chest pain in the past. MD complaint: chest pain Onset (ago): month(s) Location: chest Radiation: non-radiation Severity: mild Pain Consistency: intermittent Relieving factors: none Exacerbating factors: none Associated symptoms: denies other symptoms Treatments prior to arrival: none Related Data Previous Rx's ?Medication ?Instructions ?Recorded amoxicillin 500 mg capsule 500 mg PO Q12H #20 caps 10/28 Allergies Allergy/AdvReac Type Severity Reaction Status Date / Time No Known Allergies (No Known Allergy Verified 04/22/25 13:28 Allergies*) Review of Systems 2 Review of Systems: Yes all other systems are reviewed and are negative PMFSH Past Medical History Attestation statement: The following information was validated with the patient. Source: old records reviewed Medical History Anxiety Social History Social History (Updated 04/22/25 @ 14:55 by Leila Neely DO) Patient Tobacco Use Status: Never used Tobacco Physical Exam ED Vital Signs: Vital Signs - 24 hr 04/22/25 13:25 Temperature 98.3 F Pulse Rate 96 Respiratory Rate 20 Blood Pressure 147/89 H Pulse Oximetry 99 Oxygen Delivery Method Room Air BMI result Body Mass Index 40.8 Appearance: Alert. Oriented X3. No acute distress. Eyes: Pupils equal, round and reactive to light. ENT: Pharynx normal. Neck: Normal inspection. Neck supple. CVS: Normal heart rate and rhythm. Pulses normal. Respiratory: No respiratory distress. Breath sounds normal. Abdomen: Soft and nontender. Skin: Skin warm and dry. Normal skin color. Normal skin turgor. Extremities: No lower extremity edema. No calf ttp Neuro: Oriented X 3. No motor deficit. No sensory deficit. CN2-12 intact Course Course Course Narrative: Rapid medical examination performed in triage by Chelsea Gutierrez PA-C: Patient is a 25 year old female presenting to the emergency department with chest pain and feeling generally unwell. Detailed physical exam and review of systems are deferred to the mid level clinician. EKG, labs, imaging, swabs ordered. Patient placed back in the waiting room pending room availability and results. Medical Decision Making Medical Decision Making [facility] Narrative: 25-year-old female with no significant past medical history does have recurrent visits for chest pain she has no risk factors for ACS, no IVDA, she is PERC negative, her pulses are intact I doubt she has a dissection. She has been seen for the same in the past at this time will obtain EKG, and basic labs I did have a long discussion about her and refer her to therapy. She is here with her mom they are both very reasonable and reliable. Differential Diagnosis Differential Diagnoses: The differential diagnosis associated with the presentation includes Anxiety, atypical chest pain Admission/Observation Consideration of admission/observation: Escalation of care including admission/observation considered Workup is reassuring stable for DC Lab Data [facility] Lab Attestation statement: I reviewed the patient's lab results. 04/22/25 13:35 04/22/25 13:35 Labs: Lab Results 04/22/25 Range/Units 13:35 WBC 9.6 (4.8-10.8) X10*3/uL RBC 4.32 (4.20-5.50) X10*6/uL Hgb 12.8 (12.0-16.0) g/dl Hct 37.7 (37.0-47.0) % MCV 87.3 (80.0-98.0) fL MCH 29.6 (27.0-33.0) pg MCHC 34.0 (31.0-35.0) g/dl RDW 12.5 (11.0-16.0) % Plt Count 356 (160-400) X10*3/uL MPV 8.7 L (9.4-12.3) fL Immature Gran % (Auto) 0.3 (0.0-0.4) % Neut % (Auto) 75.1 H (45-73) % Lymph % (Auto) 16.9 L (20-40) % [place] % (Auto) 6.3 (2-11) % Eos % (Auto) 1.0 (0-4) % Baso % (Auto) 0.4 (0-2) % Lymph # (Auto) 1.6 (1.2-4.9) X10*3/uL [place] # (Auto) 0.6 (0.1-1.2) X10*3/uL Eos # (Auto) 0.1 (0.0-0.4) X10*3/uL Baso # (Auto) 0.0 (0.0-0.2) X10*3/uL Abs Immat Gran (auto) 0.03 (0.00-0.03) X10*3/uL Absolute Neuts (auto) 7.2 (2.0-8.3) x10*3/uL Absolute Nucleated RBC 0.000 (0.0-0.012) X10*3/uL Nucleated RBC % (auto) 0.0 (0.0-0.2) /100WBC Sodium 139 (135-145) mmol/L Potassium 3.8 (3.3-5.1) mmol/L Chloride 110 H (96-108) mmol/L Carbon Dioxide 24 (22-29) mmol/L Anion Gap 9 L (12-20) BUN 9 (9-16) mg/dL Creatinine 0.76 (0.5-1.4) mg/dL Estim Creat Clear Calc 139.2 Estimated GFR > 60 Random Glucose 85 (60-115) mg/dL Calcium 9.2 (8.4-10.2) mg/dL Magnesium 2.1 (1.6-2.6) mg/dL Total Bilirubin 1.1 H (0.0-1.0) mg/dL AST 25 (5-31) U/L ALT 19 (0-31) U/L Alkaline Phosphatase 59 (39-117) U/L Troponin I High Sens < 2.7 (<3.5-17.0) ng/L Total Protein 7.9 (6.5-8.0) g/dL Albumin 4.4 (3.5-5.0) g/dL Influenza Type A (PCR) NEGATIVE (Negative) Influenza Type B (PCR) NEGATIVE (Negative) RSV RNA Qual (PCR) NEGATIVE (Negative) SARS-CoV-2 RNA (RT-PCR) NEGATIVE (Negative) Independent Interpretation I performed an independent interpretation of an: EKG and Plain X-Ray Interpretation: Rate: 91 Rhythm: NSR [place]: normal Normal P waves. Normal TESS. Normal QRS complex. ST T wave : normal no BROOKS qTC: 413 prior studies: no acute ischemia The study has been interpreted contemporaneously by me. . Radiology Impression Discussion of test interpretation with radiology: I have reviewed the radiologist's reading. Independent Historian Clinical information obtained from an independent historian. History obtained from or confirmed by: Parent External Record Review External record reviewed: Outpatient record Prescription Management I considered prescription management with: Other Discharge Plan Discharge Clinical Impression: Atypical chest pain Patient Disposition: Home, Self-Care Instructions: Chest Pain (ED) Additional Instructions: At this time your labs are very reassuring, your chest x-ray was absolutely normal, your EKG showed no signs of heart attack or prior heart attack You do not meet any criteria for tearing of blood vessels or blood clots in her lungs Follow-up with therapy as discussed Return for any worsening symptoms or concerns You can always come again and have EKG if you have symptoms. Prescriptions: No Action amoxicillin 500 mg capsule 500 mg PO Q12H Qty: 20 0RF Referrals: [facility] [Outside] Referral Note: Call to schedule an appointment Stand Alone Forms: Work/School Release Print Language: Yoruba
[2025-04-22 13:41] LABS: MANUAL DIFF FLAG NO
[2025-04-22 13:44] LABS: Hematocrit 37.7 % (37.0-47.0); Hemoglobin 12.8 g/dl (12.0-16.0); Imm Gran Abs Auto 0.03 X10*3/uL (0.00-0.03); Imm Gran Pct Auto 0.3 % (0.0-0.4); Lymphocytes Absolute Auto 1.6 X10*3/uL (1.2-4.9); Mean Corpuscular HGB Conc 34.0 g/dl (31.0-35.0); Mean Corpuscular Hemoglobin 29.6 pg (27.0-33.0); Mean Corpuscular Volume 87.3 fL (80.0-98.0); NRBC Abs Auto 0.000 X10*3/uL (0.0-0.012); NRBC Pct Auto 0.0 /100WBC (0.0-0.2); Platelet Count 356 X10*3/uL (160-400); Red Blood Count 4.32 X10*6/uL (4.20-5.50); White Blood Count 9.6 X10*3/uL (4.8-10.8)
[2025-04-22 13:57] LABS: Alanine Aminotransferase 19 U/L (0-31); Albumin Level 4.4 g/dL (3.5-5.0); Alkaline Phosphatase 59 U/L (39-117); Anion Gap 9 (12-20); Aspartate Amino Transferase 25 U/L (5-31); Blood Urea Nitrogen 9 mg/dL (9-16); Calcium 9.2 mg/dL (8.4-10.2); Carbon Dioxide 24 mmol/L (22-29); Chloride 110 mmol/L (96-108); Creatinine Clr Calc Pharmacy 139.2; Estimated Glomerular Filt Rate > 60; Magnesium 2.1 mg/dL (1.6-2.6); Potassium 3.8 mmol/L (3.3-5.1); Sodium 139 mmol/L (135-145); Total Protein 7.9 g/dL (6.5-8.0)
[2025-04-22 14:04] LABS: Troponin-I High Sensitivity < 2.7 ng/L (<3.5-17.0)
[2025-04-22 14:23] LABS: Resp Syncy Virus RNA Qual PCR NEGATIVE (Negative); SARS COV2 PCR INHOUSE NEGATIVE (Negative)
[2025-04-22 14:55] VITALS: BP 147/89; PULSE 96; RESP 20; TEMP 36.8; O2SAT 99
--- OUTSIDE RECORDS SUMMARY | 2025-04-22 21:28 | XMS_ITS | Encounter Summary ---
Author Organization [facility] Address [address] [place] [phone] Phone Care Team Providers Care Machine Hostler Name Role Phone Dalton Colin MD Primary Care Provider [phone] Encounter Details Date Type Department Care Team (Late st Contact Info) Description 09/25/2017 Conversion Encounter [facility] [id number] [place] [address] Dalton Colin MD [address] [place] [address] Social History Tobacco Use Types Packs/Day Years Used Date Smoking Tobacco: Never Assessed Comments Unknown Sex and Gender Information Value Date Recorded Sex Assigned at Not on file Legal Sex Female 6:09 PM EDT Gender Identity Not on file Sexual Orientation Not on file documented as of this encounter Plan of Treatment Not on file documented as of this encounter Visit Diagnoses Not on filedocumented in this encounter Care Teams Machine Hostler Relationship Specialty Start Date End Date Dalton Colin MD [address] [place] [address] PCP - General 09/14/17 03/05/24 documented as of this encounter
--- OUTSIDE RECORDS SUMMARY | 2025-04-22 21:28 | XMS_ITS | Clinical Summary ---
Author Organization [facility] Address [address] [place] [phone] Phone Care Team Providers Care Local Delivery Driver Name Role Phone Unavailable Primary Care Provider [...] 1999, Additional history exists Influenza Vaccines (#1) 2024 02/07/2008, 03/30 COVID-19 Vaccine ( season) 2025 Hepatitis B Vaccines Completed 1999, 1999, 1999 [...]
--- OUTSIDE RECORDS SUMMARY | 2025-04-22 21:28 | XMS_ITS | Encounter Summary ---
Author Organization [facility] Address [address] [place] [address] Care Team Providers Care Pneumatic Riveter Name Role Phone Lizzeth English MD Primary Care Provider [phone] Reason for Visit * Reason Onset Date Comments pinched nerve 04/17/2024 Encounter Details Date Type Department Care Team (Late st Contact Info) Description 04/17/2024 Nurse Triage Adult Medicine [address] [phone] Lizzeth English MD [address] [place] [address] Social History Tobacco Use Types Packs/Day Years Used Date Smoking Tobacco: Former Smokeless Tobacco: Never Alcohol Use Standard Drinks/Week Comments Yes 0 (1 standard drink = 0.6 oz pur e alcohol) Comments Unknown Sex and Gender Information Value Date Recorded Sex Assigned at Not on file Legal Sex Female 7:09 PM EST Gender Identity Not on file Sexual Orientation Not on file documented as of this encounter Progress Notes * Luz Maria Dukes RN - 04/17/2024 11:35 AM EST Reason for Disposition ??? [1] Pain radiates into the thigh or further down the leg AND [2] one leg Answer Assessment - Initial Assessment Questions 1. ONSET: When did the pain begin? (e.g., minutes, hours, days) Yesterday am 2. LOCATION: Where does it hurt? (upper, mid or lower back) Low back and right leg 3. SEVERITY: How bad is the pain? (e.g., Scale 1-10; mild, moderate, or severe) - MILD (1-3): Doesn't interfere with normal activities. - MODERATE (4-7): Interferes with normal activities or awakens from sleep. - SEVERE (8-10): Excruciating pain, unable to do any normal activities. Moderate 4. PATTERN: Is the pain constant? (e.g., yes, no; constant, intermittent) Constant and hurts more when bending or walking 5. RADIATION: Does the pain shoot into your legs or somewhere else? Right leg and the top of the leg 6. CAUSE: What do you think is causing the back pain? No injury 7. BACK OVERUSE: Any recent lifting of heavy objects, strenuous work or exercise? None 8. MEDICINES: What have you taken so far for the pain? (e.g., nothing, acetaminophen, NSAIDS) Ibuprofen not helping 9. NEUROLOGIC SYMPTOMS: Do you have any weakness, numbness, or problems with bowel/bladder control? No 10. OTHER SYMPTOMS: Do you have any other symptoms? (e.g., fever, abdomen pain, burning with urination, blood in urine) Pt has no chest pain or SOB, denies any N/V/D or fever, no abd pain, has pain in the lower back with radiation to her hip , no changes in urination or in bowel habits, no numbness or tingling in the legs, has nl CSM, pt does not c/o dizziness, 11. : Is there any chance you are ? When was your last menstrual period? No Protocols used: Back Pain-A-AH * Paula Jacobs - 04/17/2024 11:15 AM EST Patient call requires triage: Symptoms patient is presenting: patient is calling stating she thinks she has pinched nerve and is looking for a call back from a nurse to see if she can be seen How long has patient had these symptoms?: 2 days For ALL patients calling to schedule any appointment (routine, sick visit, follow up, consult, etc.) in the outpatient setting please ask the following questions: Do you have fever of higher than 101, sore throat with difficulty swallowing or severe shortness ofbreath? no If YES to any of these above symptoms, send a message to triage and do not book. Red dot. If no, an audio or video visit should be booked. Have you had close contact with someone with Coronavirus in the last 14 days? no Have you traveled abroad? no Have you traveled recently to another state outside of [place], [place], [place], [place], [place], [place], [place]? no o If yes, did you quarantine for 14 days or have a negative covid test? no If yes to any of the above, patient is not to be scheduled in office until after 14 day quarantine or negative covid test. If pain or injury related was it due to an accident at work or from a motor vehicle accident? If yes, date of accident/Injury: No If yes, gather 3rd libertarian insurance information Third Libertarian Information: not applicable PCP: Lizzeth English MD Payor: [email or web address] PLAN / Plan: [employer] MEDICAID / Product Type: *No Product type* / documented in this encounter Plan of Treatment Upcoming Encounters Date Type Department Care Team (Late st Contact Info) Description 05/08/2025 3:30 PM EST Office Visit Adult Medicine [address] [phone] Lizzeth English MD [address] [place] [address] documented as of this encounter Visit Diagnoses Not on filedocumented in this encounter Care Teams Pneumatic Riveter Relationship Specialty Start Date End Date Lizzeth English MD [address] [place] [address] PCP - General Internal Medicine 09/24/24 documented as of this encounter
--- OUTSIDE RECORDS SUMMARY | 2025-04-22 21:28 | XMS_ITS | Clinical Summary ---
Author Organization [facility] [address] [place] [address] [place] [phone] Phone Care Team Providers Care Dinkey Operator Slate Name Role Phone Lizzeth English MD Primary Care Provider [phone] Allergies No known active allergies Medications methocarbamoL (ROBAXIN) 500 mg tablet Take 1 tablet (500 mg total) by mouth 3 (three) times a day if needed (neck pain). 30 tablet 04/16/2025 Active meloxicam (MOBIC) 15 mg tablet Take 1 tab daily for one week, then take one tab daily as needed for pain 30 each 04/16/2025 Active Active Problems Problem Noted Date Diagnosed Date Vitamin D deficiency 12/27/2024 Vitamin B12 deficiency 04/04/2024 Headache 02/08/2024 Overview (02/08/2024): negative CT scan 01-21 prn h/a weekly will keep diary 10-16 h/a only when forgets to wear glasses 1-18,2-19,3-20 infrequent h/a Last Assessment & Plan: 3-20 infrequent h/a Tachycardia 02/08/2024 Overview (02/08/2024): normal holter monitor 01-21 resolved no further concerns Last Assessment & Plan: normal holter monitor 01-21 resolved no further concerns Overweight 06/28/2012 Overview (02/08/2024): 12/20 - labs ordered 10-16,1-18,2-19,3-20 increase excercise/decrease calories Last Assessment & Plan: ,3-20 increase excercise/decrease calories Anxiety 06/18/2012 Overview (02/08/2024): Referred to Dr. Real at [facility] behavioral health clinic for psychotherapy 12/20 - no longer in therapy 10-16 no meds no therapy no current concerns 1-18 infrequent episode no meds no counseling 2-19,3-20 less episodes/no counseling Last Assessment & Plan: 3-20 less episodes/no counseling Encounters Date Type Department Care Team Description 04/16/2025 12:30 PM EST Office Visit Adult Medicine [address] [phone] Jennifer Foster PA Nonintractable episodic headache, unspecified headache type (Primary Dx) from Last 3 Months Immunizations Immunization Administration Dates Next Due DTaP (Infanrix) 6wks to less than 7yo ,1999,1999,05/22 VIxC-BIR-ODS (Pentacel) 2mo to less than 5yo 06/30/2000,1999,1999,05/22 HPV, Quadrivalent 04/12/2012,08/25/2011,06/16/19 12 Hepatitis B Pediatric (Enger ix B; Recombivax HB) to less than 20 yo 1999,1999,1999 IPV Inactivated polio (Ipol) 6wks and older 01/21/2015,1999,1999,05/22 Influenza Quadravalent, MDCK , 0.5ml, preservative free (Flucelvax) 6mo and older 04/01/2020 Influenza trivalent, 0.5mL, preservative free (Fluarix; FluLaval; Fluzone) ages 6mo and older (Afluria) 3 years and older 05/17/2017,03/09/2016,01/21/2015,06/16 Influenza trivalent, with pr eservative (Fluzone; Afluria) 6mo and older 04/12/2012,02/07/2008,03/30/2006 MMR, measles mumps and rubel la Live (Priorix; M-M-R II) 12mo and older 03/13/2003,03/14/2000 Meningococcal MCV4P 03/09/2016,05/11/2010 Pneumococcal Conjugate Vacci ne, 7 Valent 12/20/2000,06/30/2000,1999 Tdap Tetanus diptheria acell ular pertussis (Boostrix; Adacel) 7yo and older 10/06/2022,01/24/2020,05/11/2010 Varicella live (Varivax) 12m o and older 02/15/2008,03/14/2000 Surgical History Surgery Date Site/Laterality Comments OTHER SURGICAL HISTORY 2001 PROCEDURE: ---- OTHER ----; COMMENT: surgery on chest to remove fence OTHER SURGICAL HISTORY 2012 PROCEDURE: DE TONSILLECTOMY PRIMARY/SECONDARY AGE 12/>; COMMENT: piece of metal removed from tonsil OTHER SURGICAL HISTORY 2002 PROCEDURE: DE PLASTIC SURGERY SS; COMMENT: plastic surgery to chest for injury to chest. Medical History Medical History Date Comments Headache(784.0) DX:Headache(784. 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 DX:Mood disorder (HCC); COMMENT: seen by [facility] [place] [facility] Historical Medical DX ER 05/22 DX:Foreign body; COMMENT: L tonsillar fossa-surg removed by ENT Chest pain on exertion 01/21/2015 DX:Chest pain on exertion; COMMENT: 01-21 ref cardiology Chronic motor tic disorder 08/25/2011 DX:Ch ronic motor tic disorder; COMMENT: Sees neurology - on Guanfecine 04/19 05/21 increase guanfacine to 0.5 mg in the morning and 1 mg at night for a week, then 1 mg BID. F/u neurology 6 months 03/21 - stopped meds completely due to sedation, seen by [facility] but didn't follow up, to be followed up at neurology as needed 09/19 - Tourette's per Elizabeth; Zack begun, EKG done to R/O rhyt* Anxiety 06/18/2012 DX:Anxiety; COMM ENT: Referred to Dr. Real at [facility] behavioral health clinic for psychotherapy 12/20 - no longer in therapy Peritonsillar cellulitis 12/03/2016 DX:Lo tonsillar cellulitis; COMMENT: Admitted to [facility] Seen by ENT who did not feel it was abscessed. Gvien IVF, IV clindamycin. Sent home on Clindamycin. EBV titer negatvie. 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/2017 DX:Exerc ise-induced asthma; COMMENT: 07/24 - trial of albuterol with spacer 20 mins before exercise Third degree laceration of perineum, type 3c 04/06/2020 DX:Third degree laceration o f perineum, type 3c; COMMENT: With right sulcus and bilateral labial/lo-urethral tears Her QBL was 585, received 1 PRBC History of gestational hypertension 06/11/2022 DX:History of gestational hypertension; COMMENT: ASA 162 mg daily starting at 12 weeks- Rx sent Growth US at 32 weeks recommended Family History Medical History Relation Name Comments No Known Problems Father No Known Problems Half-Brother 1 paternal side No Known Problems Half-Brother 2 paternal side Depression Half-Sister 1 maternal side Other: borderline personality disorder, anxiety/depression Half-Sister 2 paternal side Other: of colon ca metastisis Maternal Grandfather Asthma Maternal Grandmother COPD Maternal Grandmother Hypertension Maternal Grandmother Thyroid disease Maternal Grandmother Depression Mother Diabetes Other 1 Maternal GF's r elatives Depression Other 2 Mom and MGma Other: headache Other 3 Maternal aun t Angioplasty Other 4 maternal aunt Other: liver failure d/t alcoholism Paternal Grandfather Breast cancer Paternal Grandmother unsure if in remission or not Other: mental health issue Paternal Grandmother Cervical cancer Neg Hx Ovarian cancer Neg Hx Uterine cancer Neg Hx Relation Name Status Comments Father Alive Half-Brother 1 paternal side Alive Half-Brother 2 paternal side Alive Half-Sister 1 maternal side Alive Half-Sister 2 paternal side Alive Maternal Grandfather Maternal Grandmother Alive Mother Alive Other 1 Other 2 Other 3 Other 4 maternal aunt Alive Paternal Grandfather Paternal Grandmother Alive Social History Tobacco Use Types Packs/Day Years Used Date Smoking Tobacco: Former Smokeless Tobacco: Never Tobacco Cessation:Counseling Given: Not Answered Alcohol Use Standard Drinks/Week Comments Yes 0 (1 standard drink = 0.6 oz pur e alcohol) Comments No Sex and Gender Information Value Date Recorded Sex Assigned at Not on file Legal Sex Female 7:09 PM EST Gender Identity Not on file Sexual Orientation Not on file Obstetrics History Para Term AB IAB SAB Ectopic Multiple Livin g Live Births 2 1 1 1 1 Date Outcome GA Total Labor Labor/2nd/3rd Weight Sex Type Anes PTL Nilam A1 A5 Name Clin Term F Vag-S pont Living Last Filed Vital Signs Vital Sign Reading Time Taken Comments Blood Pressure 114/80 04/16/2025 12:34 PM EST Pulse 102 04/16/2025 12:34 PM EST Temperature 36.4 C (97.6 F) 04/16/2025 12:34 PM EST Respiratory Rate 14 04/16/2025 12:34 PM EST Oxygen Saturation - - Inhaled Oxygen Concentration - - Weight 113 kg (249 lb 8 oz) 04/16/2025 12:34 PM EST Height 165.1 cm (5' 5 ) 04/16/2025 12:34 PM EST Body Mass Index 41.52 04/16/2025 12:34 PM EST Plan of Treatment Upcoming Encounters Date Type Department Care Team (Late st Contact Info) Description 05/08/2025 3:30 PM EST Office Visit Adult Medicine [address] [phone] Lizzeth English MD [address] [place] [phone] Health Maintenance Due Date Last Done Comments HIV Screening 04/10/2022 Social Influencers of Health Screening 04/10/2022 COVID-19 Vaccine ( season) 2025 Influenza Vaccine (#1) 2025 , 05/17/2017, 03/09/2016, Additional history exists Cervical Cancer Screening: Pap Smear 02/10/2026 02/10/2023, 05/22/2020 Cholesterol Screening (Lipid Panel) 06/14/2028 06/14/2023 DTaP,Tdap,and Td Vaccines (8 - Td or Tdap) 10/06/2032 10/06/2022, 01/24/2020, 05/11/2010, Additional history exists RSV Immunization Adult Patients (1 - 1-dose 75+ series) 2074 Hepatitis B Vaccines Completed 1999, 1999, 1999 HIB Vaccines Completed 06/30/2000, 06/10, 1999, Additional history exists Pneumococcal Vaccine: Pediatrics (0 to 5 Years) and At-Risk Patients (6 to 49 Years) Completed 12/20/2000, 06/30/2000, 1999 MMR Vaccines Completed 03/13/2003, 03/14/2000 Varicella Vaccines Completed 02/15/2008, 03/14/2000 HPV Vaccines Completed 04/12/2012, 08/07, 06/16/2011 IPV Vaccines Completed 01/21/2015, 06/10, 1999, Additional history exists Meningococcal ACWY Vaccine Completed 03/09/2016, Hepatitis C Screening Completed 09/13/2019 Gonorrhea/Chlamydia Screening Discontinued 09/24/2024, 12/01/2022 Depression Screening Completed 04/16/2025, 06/14/19 24 Hepatitis A Vaccines Aged Out No long er eligible based on patient's age to complete this topic Meningococcal B Vaccine Aged Out No l onger eligible based on patient's age to complete this topic RSV Immunization Patients Under 20 months Aged Out No longer eligible based on patient's age to complete this topic Procedures Procedure Name Priority Date/Time Associated Diagnosis Comments CHLAMYDIA TRACHOMATIS AND NEISSERIA GONORRHOEAE PCR Routine 09/24/2024 11:30 AM EDT Screen for STD (sexually transmitted disease) DEPRESSION SCREENING Routine 06/14/2023 LIPID PANEL Routine 06/14/2023 PAP SMEAR Routine 02/10/2023 HEPATITIS C SCREENING Routine 09/13/2019 from Last 3 Months or Most Recently Relevant to Health Maintenance Results * Chlamydia trachomatis and Neisseria gonorrhoeae molecular study (09/24/2024 11:30 AM EDT) Pathologist [facility] Neisseria gonorrhoeae PCR Negative Negative LAB MOLECULAR DIAGNOSTICS METHOD 09/25/2024 8:48 AM EDT [facility] Chlamydia trachomatis PCR Negative Negative LAB MOLECULAR DIAGNOSTICS METHOD 09/25/2024 8:48 AM EDT [facility] Swab Cervix uteri structure / Unknown Non-blood Collection / Unknown 09/24/2024 11:30 AM EDT 09/24/2024 11:30 AM EDT Violeta Gallegos CNM LAB MICROBIOLOGY - GENERAL ORD ERABLES Final Result [facility] [address] [place] [address], * Depression Screening (06/14/2023) Pathologist [facility] Depression Screening abstracted Historical Provider MD HEALTH MAINTENANCE Final Result * Lipid panel (06/14/2023) LDL/HDL Ratio 4 0 - 4 Triglycerides 142 0 - 150 mg/dL Cholesterol 150 0 - 200 mg/dL HDL 41 >=40 mg/dL LDL Cholesterol 81 0 - 100 mg/dL Blood Venous blood specimen / Unknown Historical Provider LAB BLOOD ORDERABLES Carolina l Result * Pap Smear (02/10/2023) Pap smear abstracted, negative Historical Provider HEALTH MAINTENANCE Final Result * Hepatitis C Screening (09/13/2019) Hepatitis C Screening abstracted Historical Provider HEALTH MAINTENANCE Final Result from Last 3 Months or Most Recently Relevant to Health Maintenance Insurance [facility] Care Teams Dinkey Operator Slate Relationship Specialty Start Date End Date Lizzeth English MD [address] [place] [phone] PCP - General Internal Medicine 09/24/24
== END 2025-04-22 14:59 | disposition home or self-care (01) ==
LOC: HO.ED 14:56
PROVIDERS: Physician Assistant Medical; Emergency Provider Emergency Medicine
DX: R07.89 Other chest pain (principal); Z03.818 Encounter for observation for suspected exposure to other biological agents ruled out; F41.9 Anxiety disorder, unspecified
CPT/HCPCS: 71046; 80053; 83735; 84484; 85025; 87637; 93005; 99283

== ENCOUNTER → 2025-04-22 13:14 | Outpatient (BNV) | payer OTHER, SELFPAY | PROVIDERS: Emergency Provider Emergency Medicine; Visit Provider Internal Medicine Cardiovascular Disease | DX: R07.9 Chest pain, unspecified (principal) | CPT/HCPCS: 93010 ==

== ENCOUNTER → 2025-04-22 13:27 | Outpatient (BNV) | payer OTHER, SELFPAY | PROVIDERS: Visit Provider Radiology Diagnostic Radiology | DX: R07.9 Chest pain, unspecified (principal) | CPT/HCPCS: 71046 ==